=== PATIENT | female | born 1990 | race Asian ===

== ENCOUNTER → 2018-02-13 08:06 | Outpatient (CLI) | payer OTHER, SELFPAY ==
[2018-02-13 09:40] LABS: Hematocrit 29.9 % (36-46); Hemoglobin 10.7 g/dL (12.0-16.0)
[2018-02-13 10:16] LABS: GTT (PREG) 1 Hour PP 50gm Dose 117 mg/dL (76-139)
== END ==
PROVIDERS: Family Provider Obstetrics & Gynecology; PCP Obstetrics & Gynecology; Visit Provider Obstetrics & Gynecology
DX: Z34.02 Encounter for supervision of normal first pregnancy, second trimester (principal)
CPT/HCPCS: 36415; 82950; 85014; 85018

== ENCOUNTER → 2018-04-13 09:08 | Outpatient (CLI) | payer OTHER, SELFPAY ==
[2018-04-14 14:22] LABS: Strep Grp B PCR POS for Grp B Strep
== END ==
PROVIDERS: Family Provider Obstetrics & Gynecology; PCP Obstetrics & Gynecology; Visit Provider Obstetrics & Gynecology
DX: Z34.03 Encounter for supervision of normal first pregnancy, third trimester (principal)
CPT/HCPCS: 87653

== ENCOUNTER 2018-05-18 08:07 | Observation (INO) | payer OTHER, SELFPAY ==
--- NOTE | 2018-05-18 17:56 | P.TNLD_ITS ---
Visit Information Visit Information Date of evaluation: 05/18/18 Primary OB Provider: Sunitha Betancourt Reason for Evaluation: Yes non-stress test non-stress test reason: other ( Postdates) Evaluation Evaluation Baseline heart rate: 125 Variability: Moderate (11-25) monitor accelerations: Present monitor decelerations: Absent Uterine Contraction Intensity: Mild Category of Tracing: I
== END 2018-05-18 09:29 | disposition home or self-care (01) ==
LOC: LABOR 08:09
PROVIDERS: Admitting Provider Obstetrics & Gynecology; PCP Obstetrics & Gynecology; Visit Provider Obstetrics & Gynecology
DX: Z34.90 Encounter for supervision of normal pregnancy, unspecified, unspecified trimester (principal)
CPT/HCPCS: 59025; G0378; G0379

== ENCOUNTER 2018-05-18 23:50 | Observation (INO) | payer OTHER, SELFPAY | END 2018-05-19 01:40 | disposition home or self-care (01) | LOC: LABOR 23:55 | PROVIDERS: Admitting Provider Family Medicine; Family Provider Obstetrics & Gynecology; PCP Obstetrics & Gynecology; Visit Provider Family Medicine | DX: O48.0 Post-term pregnancy (principal); Z3A.40 40 weeks gestation of pregnancy | CPT/HCPCS: 59025; 59050; G0378; G0379 ==

== ENCOUNTER 2018-05-20 03:32 | Inpatient (IN) | payer OTHER, SELFPAY ==
[2018-05-20] MEDS: LACTATED RINGERS 1,000 ML 100 ML IV ×3 (04:00→10:22)
[2018-05-20] MEDS: PENICILLIN G POTASSIUM 5,000,000 UNIT in DEXTROSE 5% IN WATER 250 ML IV (04:10)
[2018-05-20 04:16] LABS: Add Manual Diff / Slide Review NO; Eosinophils Percent Auto 0.4 % (2-4); Hematocrit 42.1 % (36-46); Hemoglobin 14.7 g/dL (12.0-16.0); Lymphocytes Percent Auto 18.2 % (25-40); Mean Corpuscular HGB Conc 34.9 % (30-36); Mean Corpuscular Hemoglobin 33.8 PG (26-34); Mean Corpuscular Volume 96.8 fL (80-100); Monocytes Percent Auto 8.4 % (3-14); Neutrophils Absolute Auto 10100 /uL (3000-5900); Platelet Count 156 X10^3/uL (150-400); Red Blood Cell Count 4.35 X10^6/uL (4.0-5.2); Red Cell Distribution Width 13.6 % (11.6-14.8)
[2018-05-20 07:15] VITALS: BP 117/65
[2018-05-20] MEDS: PENICILLIN G POTASSIUM 3,000,000 UNIT/50 ML FROZ.PIGGY 100 UNIT IV ×2 (07:45→11:53)
[2018-05-20] MEDS: LANOLIN OINT 7 GM 1 APPLIC TOP (20:45)
[2018-05-20] MEDS: DERMOPLAST SPRAY 20% 60 ML 1 SPRAY TOP (20:45)
[2018-05-20] MEDS: IBUPROFEN 600 MG TABLET PO (20:46)
[2018-05-20] MEDS: DOCUSATE 250 MG CAPSULE PO (20:46)
[2018-05-21] MEDS: IBUPROFEN 600 MG TABLET PO ×2 (02:43→09:22)
[2018-05-21 06:41] LABS: Add Manual Diff / Slide Review NO; Basophils Percent Auto 0.3 % (0-2); Eosinophils Percent Auto 0.4 % (2-4); Lymphocytes Percent Auto 14.1 % (25-40); Mean Corpuscular HGB Conc 34.4 % (30-36); Mean Corpuscular Hemoglobin 33.8 PG (26-34); Mean Corpuscular Volume 98.3 fL (80-100); Monocytes Percent Auto 9.1 % (3-14); Neutrophils Absolute Auto 10400 /uL (3000-5900); Neutrophils Percent Auto 76.1 % (50-75); Red Blood Cell Count 2.38 X10^6/uL (4.0-5.2); Red Cell Distribution Width 13.4 % (11.6-14.8); White Blood Cell Count 13.7 X10^3/uL (4.5-11.0)
[2018-05-21 06:43] LABS: Hematocrit 23.4 % (36-46); Platelet Count 99 X10^3/uL (150-400)
[2018-05-21] MEDS: PRENATAL VIT,CALC/IRON/FOLIC 1 TABLET 1 TAB PO (09:23)
[2018-05-21] MEDS: DOCUSATE 250 MG CAPSULE PO (09:31)
[2018-05-22] MEDS: DOCUSATE 250 MG CAPSULE PO (09:09)
[2018-05-22] MEDS: PRENATAL VIT,CALC/IRON/FOLIC 1 TABLET 1 TAB PO (09:09)
[2018-05-22 09:51] VITALS: BP 111/56; PULSE 109; RESP 16; TEMP 36.1
--- NOTE | 2018-06-10 16:43 | PM.OBHP.1 ---
OB HPI Date/Time Date of admission: 05/20/18 Date Patient Seen: 05/20/18 Time Patient Seen: 08:30 History of Present Condition Chief complaint: labor & delivery : 1 Para: 0 Estimated Date of Delivery: 05/13/18 Estimated Gestational Age (weeks): 41 Narrative: Lexii Mascorro is a 27 year old female 1 para 0 at 41 weeks gestation who presented in active labor Indications Other reason(s) for admission: Active labor History of Present care: good care, initiated at week # (9), number of visits (13) and pounds weight gain (30) Dating criteria: LMP confirmed by 1st trimester US Ultrasounds: normal 1st trimester US and normal mid trimester US Obstetrical complications: none Medical complications: none Preadmission Labs Blood type: A (+) positive -: Antibody screen: negative, GBS status: negative, HBsAG: positive, HIV: negative and RPR/VDLR: negative -: Chlamydia screen: not detected and Gonorrhea screen: not detected -: Rubella: immune and Varicella: immune HCT: 29.9 HCAB: negative PAP: Normal Urine: Negative 1 hr GTT: 117 Evaluation Evaluation Baseline heart rate: 140 Variability: Moderate (11-25) monitor accelerations: Present monitor decelerations: Absent Contraction Frequency (minutes): 3 Uterine Contraction Intensity: Strong/Firm Category of Tracing: I Cervical dilation (cm): 4 Cervical effacement (%): 80 station: -2 Laboratory results: Laboratory Tests 05/20/18 05/20/18 05/21/18 04:03 04:03 06:05 WBC 14.0 H 13.7 H RBC 4.35 2.38 L Hgb 14.7 8.0 L Hct 42.1 23.4 L MCV 96.8 98.3 MCH 33.8 33.8 MCHC 34.9 34.4 RDW 13.6 13.4 Plt Count 156 99 L Neut % (Auto) 72.0 76.1 H Lymph % (Auto) 18.2 L 14.1 L [place] % (Auto) 8.4 9.1 Eos % (Auto) 0.4 L 0.4 L Baso % (Auto) 1.0 0.3 Neut # (Auto) 13343 H 05365 H Blood Type A Positive [facility] Social History Smoking Status: Never smoker Meds Home Medications Medication Instructions Recorded Confirmed Type No Known Home Medications 05/20/18 05/20/18 History Allergies Allergy/AdvReac Type Severity Reaction Status Date / Time No Known Drug Allergies Allergy Verified 05/20/18 03:57 Exam Vital Signs (past 8 hours): Generally: A well-developed, well-nourished female, no acute distress Lungs: Clear to auscultation bilaterally Cardiovascular: Regular rate and rhythm Fundal height: 40 cm Estimated weight: 8 1/2 pounds Extremities: Negative Homans, trace edema Objective Labs Result Diagrams: 05/21/18 06:05 Assessment and Plan (1) 41 weeks gestation of : Current visit: No Status: Acute (2) Thick meconium stained amniotic fluid: Current visit: No Status: Acute Plan: Plan: Assessment: 27-year-old 1 para 0 at 41 weeks gestation entering 2nd stage of labor Thick meconium-stained amniotic fluid Plan: Peds notified Expected management to spontaneous vaginal delivery
--- NOTE | 2018-06-10 16:49 | P.HPOB_ITS ---
OB HPI Date/Time Date of admission: 05/20/18 Date Patient Seen: 05/20/18 Time Patient Seen: 08:30 History of Present Condition Chief complaint: labor & delivery : 1 Para: 0 Estimated Date of Delivery: 05/13/18 Estimated Gestational Age (weeks): 41 Narrative: Lexii Mascorro is a 27 year old female 1 para 0 at 41 weeks gestation who presented in active labor Indications Other reason(s) for admission: Active labor History of Present care: good care, initiated at week # (9), number of visits (13) and pounds weight gain (30) Dating criteria: LMP confirmed by 1st trimester US Ultrasounds: normal 1st trimester US and normal mid trimester US Obstetrical complications: none Medical complications: none Preadmission Labs Blood type: A (+) positive -: Antibody screen: negative, GBS status: negative, HBsAG: positive, HIV: negative and RPR/VDLR: negative -: Chlamydia screen: not detected and Gonorrhea screen: not detected -: Rubella: immune and Varicella: immune HCT: 29.9 HCAB: negative PAP: Normal Urine: Negative 1 hr GTT: 117 Evaluation Evaluation Baseline heart rate: 140 Variability: Moderate (11-25) monitor accelerations: Present monitor decelerations: Absent Contraction Frequency (minutes): 3 Uterine Contraction Intensity: Strong/Firm Category of Tracing: I Cervical dilation (cm): 4 Cervical effacement (%): 80 station: -2 Laboratory results: Laboratory Tests 05/20/18 05/20/18 05/21/18 04:03 04:03 06:05 WBC 14.0 H 13.7 H RBC 4.35 2.38 L Hgb 14.7 8.0 L Hct 42.1 23.4 L MCV 96.8 98.3 MCH 33.8 33.8 MCHC 34.9 34.4 RDW 13.6 13.4 Plt Count 156 99 L Neut % (Auto) 72.0 76.1 H Lymph % (Auto) 18.2 L 14.1 L [place] % (Auto) 8.4 9.1 Eos % (Auto) 0.4 L 0.4 L Baso % (Auto) 1.0 0.3 Neut # (Auto) 86614 H 93738 H Blood Type A Positive Antibody Screen [facility] Social History Smoking Status: Never smoker Meds Home Medications Medication Instructions Recorded Confirmed Type No Known Home Medications 05/20/18 05/20/18 History Allergies Allergy/AdvReac Type Severity Reaction Status Date / Time No Known Drug Allergies Allergy Verified 05/20/18 03:57 Exam Vital Signs (past 8 hours): Generally: A well-developed, well-nourished female, no acute distress Lungs: Clear to auscultation bilaterally Cardiovascular: Regular rate and rhythm Fundal height: 40 cm Estimated weight: 8 1/2 pounds Extremities: Negative Homans, trace edema Objective Labs Result Diagrams: 05/21/18 06:05 Assessment and Plan (1) 41 weeks gestation of : Current visit: No Status: Acute (2) Thick meconium stained amniotic fluid: Current visit: No Status: Acute Plan: Plan: Assessment: 27-year-old 1 para 0 at 41 weeks gestation entering 2nd stage of labor Thick meconium-stained amniotic fluid Plan: Peds notified Expected management to spontaneous vaginal delivery
--- NOTE | 2018-06-10 16:50 | PM.OBPRVD ---
Events: Meconium Stained Fluid Delivery date: 05/20/18 Induction method: none Delivery monitor: external FHT and external uterine Route of delivery: Episiotomy description: None Laceration description: None Estimated blood loss (mL): 400 Anesthesia type: Epidural Narrative: Patient complete and pushed for 1 and 0.5 hr. At 3:21 p.m., a live male infant delivered spontaneously over an intact perineum. No nuchal cord. There was a mild shoulder dystocia that was relieved with Jaelyn and suprapubic pressure. The was placed on mom's abdomen. The cord was double clamped and cut. Pitocin was given in the IV fluids. Cord bloods were obtained. The placenta delivered intact with a 3 vessel cord at 3:26 p.m.. Estimated blood loss 400 cc. No lacerations. Apgars 7 at 1 min and 9 at 5 min. Weight 8 lb 11.86 oz. . Epidural analgesia. Mom and infant stable to recovery. Thick meconium-stained amniotic fluid. Plan for aftercare: To routine care
--- NOTE | 2018-06-10 16:52 | PM.OBPN.1 ---
Subjective - OB Patient comments: no complaints baby status: doing well feeding status: exclusively breast feeding Date Patient Seen: 05/21/18 Time Patient Seen: 13:30 Exam Vital Signs (past 8 hours): Generally: Mom sitting up in bed, holding infant, no acute distress Fundus: Firm at U -1 Extremities: Negative Homans, no edema Objective Labs Result Diagrams: 05/21/18 06:05 Assessment & Plan (1) 41 weeks gestation of : Status: Acute Current Visit: No (2) Thick meconium stained amniotic fluid: Status: Acute Current Visit: No (3) (normal spontaneous vaginal delivery): Status: Acute Current Visit: No (4) Shoulder dystocia during labor and delivery: Status: Acute Assessment and plan: Assessment: day # 1. Status post spontaneous vaginal delivery doing very well Plan: Anticipate discharge 05/22/2018 Current Visit: No Plan day: 1 plan OB: routine care Time Spent With Patient Total time spent is greater than 50% in coordination of care (as documented) at patient's floor/unit and/or counseling patient: less than 15 minutes
--- NOTE | 2018-06-10 16:56 | P.DS_ITS ---
Discharge Providers Date of admission: 05/20/18 03:32 Primary care physician: Sunitha Betancourt MD Consults: 05/20/18 19:25 Consult to Papier Mache Molder Routine Comment: Discharge provider: Sunitha Betancourt MD Discharge Date: 05/22/18 Summary Date Patient Seen: 05/22/18 Time Patient Seen: 11:30 Peripartum Data Delivery Method: Natural Vaginal Laceration description: None Episiotomy description: None Procedures: Spontaneous vaginal delivery Epidural analgesia complications: none Discharge Diagnosis (1) 41 weeks gestation of : Status: Acute (2) Thick meconium stained amniotic fluid: Status: Acute (3) (normal spontaneous vaginal delivery): Status: Acute (4) Shoulder dystocia during labor and delivery: Status: Acute Status at Discharge Functional status at discharge: independent ambulation Overall status at discharge: patient is progressing back to baseline Time Spent with Patient Total time spent providing and/or coordinating discharge services: Less than 30 minutes Objective Labs Result Diagrams: 05/21/18 06:05 Discharge Plan Discharge Plan Patient Disposition: Home Discharge comment: Call with fever, chills or bleeding vaginally more than a pad in an hour Discharge Med Rec/Prescriptions Prescriptions: No Action No Known Home Medications RF: 0 Follow up/Referrals: Sunitha Betancourt MD [Primary Care Provider] - 6 Weeks (Pt will call for her appointment with Dr. Betancourt) Provider Discharge Instructions Diet: Diet as Tolerated Activity: No intercourse Skin/Wound/Dressing Care Report to your healthcare provider any signs of infection, such as:: chills, fever, increased pain and unusual drainage Visit Report/Discharge Packet Instructions: DI for Labor and Delivery, Vaginal Stand Alone Forms: Discharge: Care Visit Report Forms: Stroke Signs & Symptoms Discharge Data Primary Care Provider: Sunitha Betancourt Attending Provider: Sunitha Betancourt Admit Date/Time: 05/20/18 03:32 Discharges patient from system. Discharge Date/Time: 05/22/18 11:48
== END 2018-05-22 11:48 | disposition home or self-care (01) | DRG 775 ==
PROVIDERS: Admitting Provider Obstetrics & Gynecology; Family Provider Obstetrics & Gynecology; PCP Obstetrics & Gynecology; Visit Provider Obstetrics & Gynecology
DX: O77.0 Labor and delivery complicated by meconium in amniotic fluid (principal); Z3A.41 41 weeks gestation of pregnancy; Z37.0 Single live birth; O66.0 Obstructed labor due to shoulder dystocia
CPT/HCPCS: 01967; 36415; 59050; 59400; 85025; 86850; 86900; 86901; G0379; J2540

== ENCOUNTER → 2018-09-15 21:16 | Outpatient (CLI) | payer OTHER, SELFPAY | PROVIDERS: Family Provider Obstetrics & Gynecology; PCP Obstetrics & Gynecology; Visit Provider Physician Assistant | DX: Z20.818 Contact with and (suspected) exposure to other bacterial communicable diseases (principal) | CPT/HCPCS: 87070 ==

== ENCOUNTER → 2020-03-05 08:30 | Outpatient (CLI) | payer OTHER, SELFPAY ==
[2020-03-05 09:58] LABS: Add Manual Diff / Slide Review NO; Basophils Absolute Auto 0 /uL (0-100); Basophils Percent Auto 0.3 % (0-2); Eosinophils Absolute Auto 0 /uL (0-450); Eosinophils Percent Auto 0.6 % (2-4); Hematocrit 39.8 % (36-46); Hemoglobin 13.9 g/dL (12.0-16.0); Lymphocytes Absolute Auto 1700 /uL (1100-4500); Lymphocytes Percent Auto 23.7 % (25-40); Mean Corpuscular Hemoglobin 33.2 PG (26-34); Mean Corpuscular Volume 94.9 fL (80-100); Monocytes Absolute Auto 500 /uL (0-900); Monocytes Percent Auto 7.4 % (3-14); Neutrophils Absolute Auto 4800 /uL (1500-7000); Platelet Count 167 X10^3/uL (150-400); Red Blood Cell Count 4.19 X10^6/uL (4.0-5.2); Red Cell Distribution Width 11.8 % (11.6-14.8)
[2020-03-05 11:30] LABS: Appearance Urine UA CLEAR; Bilirubin Urine UA NEGATIVE (NEGATIVE); Color Urine UA YELLOW; Glucose Urine UA NEGATIVE (Negative); Ketones Urine UA NEGATIVE (NEGATIVE); Leukocyte Esterase Urine UA NEGATIVE (NEGATIVE); Nitrite Urine UA NEGATIVE (Negative); Occult Blood Urine UA NEGATIVE (Negative); Protein Urine UA NEGATIVE (Negative); Specific Gravity Urine UA <=1.005 (1.000-1.035); Urobilinogen Urine UA 0.2 E.U./dL (0.2)
[2020-03-05 17:29] LABS: Urine N gonorrhoeae NOT DETECTED
[2020-03-05 18:10] LABS: Urine Chlamydia NOT DETECTED
[2020-03-06 01:47] LABS: RPR Screen Non Reactive (Non Reactive)
[2020-03-06 08:09] LABS: Varicella IgG Antibody 3293 index (Immune >165)
[2020-03-06 16:16] LABS: HIV 1 & 2 Ab/Ag 4th Gen Combo NEGATIVE (NEGATIVE); Hep C Virus Ab w/Reflex Quant NEGATIVE s/c (NEGATIVE); Rubella Antibody IgG 16.5 IU/mL (>15)
[2020-03-06 16:23] LABS: Hepatitis B Surface Antigen NEGATIVE s/c (NEGATIVE)
== END ==
PROVIDERS: Family Provider Obstetrics & Gynecology; PCP Obstetrics & Gynecology; Referring Provider Obstetrics & Gynecology; Visit Provider Obstetrics & Gynecology
DX: Z34.81 Encounter for supervision of other normal pregnancy, first trimester (principal)
CPT/HCPCS: 36415; 80055; 81003; 86787; 86803; 86850; 86900; 86901; 87086; 87389; 87491; 87591

== ENCOUNTER → 2020-06-12 07:51 | Outpatient (CLI) | payer OTHER, SELFPAY ==
--- NOTE | 2020-06-12 07:53 | DI.US.S_ITS ---
PROCEDURE: US OB >= 14 WEEKS FETUS INDICATIONS: ANATOMY SCAN OUTSIDE/PRIOR DATING DATA: Last menstrual period (LMP): Not available. LMP-based estimated date of delivery (ANNABEL): Not available . First dating scan (date and location): 03/05/20 . Estimated date of delivery (ANNABEL) from first dating scan: 10/27/20 . TECHNIQUE: Real-time scanning was performed of the fetus, with image documentation and biometric measurements. Endovaginal scanning: Not necessary. COMPARISON: [facility], , OB >= 14 WEEKS FETUS, 05/18/2018, 8:03. [facility], , OB >= 14 WEEKS FETUS, 03/09/2018, 10:47. FINDINGS: General: A single living intrauterine gestation is present. Presentation: Transverse head maternal right. Placenta: Placental position is posterior, without previa , without previa. Amniotic fluid index: 15.2 cm, within normal limits. heart rate: 160 beats per minute. Maternal cervical canal: 4.1 cm long. Normal lower limit is 2.5 cm. biometrics: Biparietal diameter: 5.1 cm, 21 weeks 3 days Head circumference: 18.8 cm, 21 weeks 1 day Abdominal circumference: 16.1 cm, 21 weeks 2 days Femur length: 3.5 cm, 21 weeks 0 days Estimated gestational age from initial scan: 20 weeks 3 days Composite gestational age from present scan: 21 weeks 2 days Estimated weight and percentile: 401 g, 80 second percentile Measurement variability for biometric dating: +/- 7 days from 14 weeks to 15 weeks 6 days gestation, +/- 10 days from 16 weeks to 21 weeks 6 days gestation, +/- 2 weeks from 22 weeks to 27 weeks 6 days gestation, +/- 3 weeks for 28 weeks gestation or later. weight reference: 4500 g or EFW >90/95% is considered macrosomia or large for gestational age. EFW <10% is small for gestational age. EFW 5% or less is considered intra-uterine growth restriction. Anatomic survey: Neuro: Ventricles are non-dilated at less than 10 mm. Cisterna magna is normal at 3-11 mm. Cerebellum is normal in size and morphology. Nuchal skin fold: Normal at less than 6 mm between 14-21 weeks gestational age. Face: Nose and lips, facial profile are normal. Spine: No evidence for spina bifida. Heart: 4-chambered heart is present, with normal ventricular outflow tracts. Diaphragm: Diaphragm is intact. Stomach: Left-sided stomach is present. Kidneys: No hydronephrosis. Normal is less than 5 mm in 2nd trimester, less than 7 mm in 3rd trimester. Cord: 3-vessel cord has orthotopic insertion. Bladder: Normal in size. Extremities: All 4 extremities identified. IMPRESSION: Appropriate interval growth, normal amniotic fluid volume. Normal anatomic survey. The delivery date is projected to be centered on 10/27/20. Dictated by: Tai Guidry M.D. on 06/12/2020 at 13:28 Approved by: Tai Guidry M.D. on 06/12/2020 at 13:34
== END ==
PROVIDERS: Family Provider Obstetrics & Gynecology; PCP Obstetrics & Gynecology; Referring Provider Obstetrics & Gynecology; Visit Provider Obstetrics & Gynecology
DX: Z34.82 Encounter for supervision of other normal pregnancy, second trimester (principal); Z3A.21 21 weeks gestation of pregnancy
CPT/HCPCS: 76811

== ENCOUNTER → 2020-07-31 07:03 | Outpatient (CLI) | payer OTHER, SELFPAY ==
[2020-07-31 10:49] LABS: Hematocrit 30.9 % (36-46); Hemoglobin 10.6 g/dL (12.0-16.0)
[2020-07-31 11:18] LABS: GTT (PREG) 1 Hour PP 50gm Dose 116 mg/dL (76-139)
== END ==
PROVIDERS: Family Provider Obstetrics & Gynecology; Referring Provider Obstetrics & Gynecology; Visit Provider Obstetrics & Gynecology
DX: Z34.82 Encounter for supervision of other normal pregnancy, second trimester (principal); Z3A.26 26 weeks gestation of pregnancy
CPT/HCPCS: 36415; 82950; 85014; 85018

== ENCOUNTER → 2020-10-04 14:15 | Outpatient (CLI) | payer OTHER, SELFPAY ==
[2020-10-05 12:01] LABS: Strep Grp B PCR POS for Grp B Strep
== END ==
PROVIDERS: Family Provider Obstetrics & Gynecology; Visit Provider Obstetrics & Gynecology
DX: Z34.90 Encounter for supervision of normal pregnancy, unspecified, unspecified trimester (principal); Z3A.36 36 weeks gestation of pregnancy
CPT/HCPCS: 87653

== ENCOUNTER 2020-10-16 09:51 | Inpatient (IN) | payer OTHER, SELFPAY ==
[2020-10-16] MEDS: LACTATED RINGERS 1,000 ML 100 ML IV ×2 (11:39→15:32)
[2020-10-16] MEDS: PENICILLIN G POTASSIUM 5,000,000 UNIT in DEXTROSE 5% IN WATER 250 ML IV (11:39)
[2020-10-16 11:41] LABS: Add Manual Diff / Slide Review NO; Basophils Absolute Auto 0 /uL (0-100); Basophils Percent Auto 0.4 % (0-2); Eosinophils Absolute Auto 0 /uL (0-450); Eosinophils Percent Auto 0.3 % (2-4); Hematocrit 38.8 % (36-46); Hemoglobin 13.4 g/dL (12.0-16.0); Lymphocytes Absolute Auto 1300 /uL (1100-4500); Lymphocytes Percent Auto 13.6 % (25-40); Mean Corpuscular HGB Conc 34.5 % (30-36); Mean Corpuscular Volume 95.7 fL (80-100); Monocytes Absolute Auto 600 /uL (0-900); Monocytes Percent Auto 6.9 % (3-14); Neutrophils Absolute Auto 7300 /uL (1500-7000); Neutrophils Percent Auto 78.8 % (50-75); Platelet Count 144 X10^3/uL (150-400); Red Blood Cell Count 4.05 X10^6/uL (4.0-5.2); Red Cell Distribution Width 13.5 % (11.6-14.8); White Blood Cell Count 9.3 X10^3/uL (4.5-11.0)
[2020-10-16 11:48] LABS: COVID19 -Nasal RAPID Negative (Negative)
[2020-10-16] MEDS: PENICILLIN G POTASSIUM 3,000,000 UNIT/50 ML FROZ.PIGGY 100 UNIT IV (15:32)
[2020-10-16] MEDS: OXYTOCIN PREMIX 30 UNIT/500 ML PLAST..BAG IV (16:47)
--- NOTE | 2020-10-16 19:44 | PM.OBPRVD ---
Events: Labor Augmentation and Premature Rupture Membrane Labor & Delivery Delivery date: 10/16/20 Cervical ripening method: none Induction method: none Delivery augmentation: pitocin Delivery monitor: external FHT and external uterine Route of delivery: Episiotomy description: None L&D Laceration Description: Perineal - 1st Degree Delivery repair: chromic Anesthesia Type: Epidural Complications: None Narrative: Patient complete and pushed for 4 minutes. At 7:11 p.m., a live male infant delivered spontaneously in the KRYSTIN presentation. Loose double nuchal cord x2 were reduced on the perineum. The remainder of the body delivered without difficulty and was placed on mom's abdomen. The cord was double clamped and cut after it stopped pulsing. Cord bloods were obtained. Pitocin was given in the IV fluids. The placenta delivered intact with a three-vessel cord at 7:16 p.m.. A first-degree perineal laceration was repaired with 2-0 chromic in the usual fashion. Hemostasis was achieved. Apgars 9 at 1 minute and 9 at 5 minutes. Epidural analgesia. . Mom and infant stable to recovery. [place] Baby 1: Infant gender: Male Presentation: vertex Position: Left Occiput Anterior Placenta delivery description: Spontaneous Cord Vessel Description: 3 Vessels, Nuchal Cord (x2), Loose, Reduced and Clamped/Cut score (1 min): 9 score (5 min): 9 Plan for aftercare: Routine care
--- NOTE | 2020-10-16 19:54 | P.HPOB_ITS ---
OB HPI Date/Time Date of admission: 10/16/20 Date Patient Seen: 10/16/20 Time Patient Seen: 10:00 History of Present Condition Chief complaint: NST : 2 Para: 1 Estimated Date of Delivery: 10/27/20 Estimated Gestational Age (weeks): 38+3 Narrative: Lexii Mascorro is a 30 year old female 2 para 1 at 38 and 3 7th weeks gestation presented this morning after rupture membranes at 2:00 a.m. of clear amniotic fluid. Irregular contractions. Indications Other reason(s) for admission: Spontaneous rupture membranes History of Present care: initiated at week # (6), number of visits (11) and pounds weight gain (33) Dating criteria: LMP confirmed by 1st trimester US Ultrasounds: normal 1st trimester US and normal mid trimester US Obstetrical complications: none Medical complications: none Preadmission Labs Blood type: A (+) positive -: Antibody screen: negative, GBS status: positive, HBsAG: negative, HIV: negative and RPR/VDLR: negative -: Chlamydia screen: not detected and Gonorrhea screen: not detected -: Rubella: immune and Varicella: immune HCT: 38.8 HCAB: negative PAP: Normal (2017) Urine: Negative 1 hr GTT: 116 Prior (ies) History: 05/20/18 41 wks 8#11oz postdate induction shoulder dystocia MSF Evaluation Evaluation Baseline heart rate: 145 Variability: Moderate (11-25) monitor accelerations: Present monitor decelerations: Absent Contraction Frequency (minutes): 6 Uterine Contraction Intensity: Mild Status: Category l Laboratory results: Laboratory Tests 10/16/20 10/16/20 10/16/20 11:15 11:20 11:20 WBC 9.3 RBC 4.05 Hgb 13.4 Hct 38.8 MCV 95.7 MCH 33.0 MCHC 34.5 RDW 13.5 Plt Count 144 L Neut % (Auto) 78.8 H Lymph % (Auto) 13.6 L [place] % (Auto) 6.9 Eos % (Auto) 0.3 L Baso % (Auto) 0.4 Neut # (Auto) 7300 H Lymph # (Auto) 1300 [place] # (Auto) 600 Eos # (Auto) 0 Baso # (Auto) 0 SARS-CoV-2 (PCR) Negative Blood Type A Positive Antibody Screen Negative Non-invasive Membranes Rupture Test: positive PFSH Medical History (Updated 08/07/20 @ 10:19 by Sunitha Betancourt MD) Jaw fracture Surgical History (Updated 03/01/20 @ 12:15 by Marylin Balderrama, RN) [place] teeth removed (~2005) Family History (Updated 03/01/20 @ 12:23 by Marylin Balderrama, RN) Mother Pre-hypertension Father No problems noted. Grandfather Hypertension Diabetes mellitus Grandmother Unknown whether patient has any health problems Grandfather Lung cancer Cancer Smoker Myocardial infarct Grandmother Arthritis Cataract Family/Other Diabetes mellitus Brother Pre-hypertension Family/Other Epilepsy Family/Other Epilepsy Social History (Updated 03/01/20 @ 11:47 by Marylin Balderrama, CALEB) marital status: number of children: 1 household members: spouse and children education level: master's degree occupational status: previously employed current occupational exposures/hazards: No Previous occupational history: School Counselor : subbing in [employer] agrcia/denominational: Sabianism special garcia needs: No Smoking Status: Never smoker second hand exposure: No alcohol intake: former (pre- : occasional) substance use type: does not use Meds Home Medications and Allergies Home Medications Medication Instructions Recorded Confirmed Type prenat.vits,emme,owm-flnu-tcmgp 1 tab PO DAILY 03/01/20 10/16/20 History Allergies Allergy/AdvReac Type Severity Reaction Status Date / Time No Known Drug Allergies Allergy Verified 10/04/20 14:22 Exam Vital Signs (past 8 hours): Generally: Patient is sitting up in bed, no acute distress. Handling the contractions well Lungs: Clear to auscultation bilaterally Cardiovascular: Regular rate and rhythm Fundal height: 38 cm Estimated weight: 7-1/2 lb Extremities: Negative Homans Vaginal exam: deferred Objective Labs Result Diagrams: 10/16/20 11:20 Labs: Laboratory Results - last 24 hr 10/16/20 10/16/20 10/16/20 11:15 11:20 11:20 WBC 9.3 RBC 4.05 Hgb 13.4 Hct 38.8 MCV 95.7 MCH 33.0 MCHC 34.5 RDW 13.5 Plt Count 144 L Neut % (Auto) 78.8 H Lymph % (Auto) 13.6 L [place] % (Auto) 6.9 Eos % (Auto) 0.3 L Baso % (Auto) 0.4 Neut # (Auto) 7300 H Lymph # (Auto) 1300 [place] # (Auto) 600 Eos # (Auto) 0 Baso # (Auto) 0 SARS-CoV-2 (PCR) Negative Blood Type A Positive Antibody Screen Negative Assessment and Plan Assessment and Plan Assessment and Plan narrative: Assessment: 30-year-old 2 para 1 at 38-,3/7 weeks gestation status post rupture of membranes 8 hours ago Group B strep positive No signs and symptoms of chorioamnionitis Not in active labor Plan: Group B strep prophylaxis Pitocin augmentation Epidural as necessary Expected management to spontaneous vaginal delivery Time Spent with Patient Total time spent with greater than 50% in coordination of care (as documented) at patient's floor/unit and/or counseling patient:: 15-24 minutes
[2020-10-16] MEDS: IBUPROFEN 600 MG TABLET PO (21:29)
[2020-10-16] MEDS: DERMOPLAST SPRAY 20% 60 ML 1 SPRAY TOP (21:29)
[2020-10-16 21:57] VITALS: BP 121/76
[2020-10-17] MEDS: LANOLIN OINT 7 GM 1 APPLIC TOP (05:40)
[2020-10-17] MEDS: IBUPROFEN 600 MG TABLET PO (05:41)
[2020-10-17 07:11] LABS: Hematocrit 33.4 % (36-46); Hemoglobin 11.6 g/dL (12.0-16.0)
[2020-10-17] MEDS: DOCUSATE 100 MG CAPSULE PO (09:41)
[2020-10-17] MEDS: PRENATAL VIT,CALC/IRON/FOLIC 1 TABLET 1 TAB PO (09:41)
[2020-10-17 14:38] VITALS: BP 121/76; PULSE 70; RESP 18; TEMP 36.6
--- NOTE | 2020-10-17 18:03 | PM.OBDS.1 ---
Discharge Providers Provider Date of admission: 10/16/20 09:51 Discharge Date: 10/17/20 Primary care physician: Doctor Yury MD Consults: 10/17/20 19:38 Consult to [employer] Specialist Routine Comment: Discharge provider: Sunitha Betancourt MD Summary Hospital Course Date Patient Seen: 10/17/20 Time Patient Seen: 08:00 Diagnoses: 38-3/7 weeks gestation Prolonged rupture of membrane Group B strep positive Pitocin augmentation of labor Spontaneous vaginal delivery First-degree perineal laceration and repair Hospital Course: Patient is a 30-year-old 2 para 2 who presented at 9:00 a.m. after spontaneous rupture of membranes at 2:00 a.m. of clear amniotic fluid. She was started on Pitocin augmentation. She received an epidural for pain management. She progressed to complete dilation and had a spontaneous vaginal delivery with a first-degree laceration and repair. Her course was unremarkable. Peripartum Data Delivery Method: Natural Vaginal Laceration Description: Perineal - 1st Degree Episiotomy description: None Procedures: Epidural analgesia Pitocin augmentation of labor Spontaneous vaginal delivery First-degree laceration and repair complications: none [place] 1: Gender: Male Disposition of : home Status at Discharge Cognitive/behavioral status at discharge: oriented Functional status at discharge: independent ambulation Overall status at discharge: patient is progressing back to baseline Time Spent with Patient Time attestation: Total time spent providing and/or coordinating discharge services: Time spent: Less than 30 minutes Objective Labs Result Diagrams: 10/17/20 06:50 Labs: Laboratory Results - last 24 hr 10/17/20 06:50 Hgb 11.6 L Hct 33.4 L Exam Vital Signs (past 8 hours): - 10/17/20 14:38 Temperature 97.8 F Pulse Rate 70 Respiratory Rate 18 Blood Pressure 121/76 Narrative Exam Narrative: Generally: Patient is sitting up in bed, nursing , no acute distress Fundus: Firm at U -1 Extremities: Negative Homans, no edema Discharge Plan Discharge Plan Patient Disposition: Home Provider Discharge Comment: Call with fever, chills, or bleeding vaginally more than a pad an hour Ibuprofen 600 mg every 6 hours as needed for cramping Discharge orders & Medications Prescriptions: Continued prenat.vits,meme,zfc-ypxp-tiadq Tablet 1 tab PO DAILY RF: 0 Follow up/Referrals: Sunitha Betancourt MD [Family Provider] - 11/28/20 2:00 pm (Check in 15 minutes prior to appointment. Call [phone] with any question or concerns appointment on 10/22 @ 1000) Doctor Cotton MD [Primary Care Provider] - Diet/Activity/Treatments Diet: Regular Activity: Nothing in the vagina Skin/Wound/Dressing Care Report to your healthcare provider any signs of infection, such as:: chills, fever, increased pain and unusual drainage Visit Report/Discharge Packet Instructions: DI for Labor and Delivery, Vaginal Stand Alone Forms: Discharge: Care Discharge Data Primary Care Provider: Doctor Yury
== END 2020-10-17 18:45 | disposition home or self-care (01) | DRG 807 ==
PROVIDERS: Admitting Provider Obstetrics & Gynecology; Family Provider Obstetrics & Gynecology; Referring Provider Obstetrics & Gynecology; Visit Provider Obstetrics & Gynecology
DX: O42.02 Full-term premature rupture of membranes, onset of labor within 24 hours of rupture (principal); Z37.0 Single live birth; O70.0 First degree perineal laceration during delivery; O99.824 Streptococcus B carrier state complicating childbirth; Z3A.38 38 weeks gestation of pregnancy; Z20.822 Contact with and (suspected) exposure to COVID-19; O69.81X0 Labor and delivery complicated by cord around neck, without compression, not applicable or unspecified
CPT/HCPCS: 01967; 36415; 59050; 59400; 84112; 85014; 85018; 85025; 86850; 86900; 86901; 87635; C9803; G0379; J2540; J2590

== ENCOUNTER → 2022-09-22 08:43 | Outpatient (CLI) | payer OTHER, SELFPAY ==
[2022-09-22 20:39] LABS: Appearance Urine UA CLEAR; Bilirubin Urine UA NEGATIVE (NEGATIVE); Color Urine UA YELLOW; Glucose Urine UA NEGATIVE (Negative); Ketones Urine UA NEGATIVE (NEGATIVE); Leukocyte Esterase Urine UA NEGATIVE (NEGATIVE); Nitrite Urine UA NEGATIVE (Negative); Occult Blood Urine UA NEGATIVE (Negative); Protein Urine UA NEGATIVE (Negative); Urobilinogen Urine UA 0.2 E.U./dL (0.2)
[2022-09-22 20:41] LABS: pH Urine UA 6.5 (4.5-8.0)
[2022-09-22 22:09] LABS: Urine N gonorrhoeae NOT DETECTED
[2022-09-22 22:31] LABS: Urine Chlamydia NOT DETECTED
== END ==
PROVIDERS: Family Provider Obstetrics & Gynecology; Visit Provider Obstetrics & Gynecology
DX: Z34.82 Encounter for supervision of other normal pregnancy, second trimester (principal); Z3A.14 14 weeks gestation of pregnancy
CPT/HCPCS: 81003; 87086; 87491; 87591

== ENCOUNTER → 2022-10-18 07:52 | Outpatient (CLI) | payer OTHER, SELFPAY ==
[2022-10-18 08:56] LABS: Add Manual Diff / Slide Review NO; Basophils Absolute Auto 0 /uL (0-100); Basophils Percent Auto 0.4 % (0-2); Eosinophils Absolute Auto 100 /uL (0-450); Eosinophils Percent Auto 1.3 % (2-4); Hematocrit 34.9 % (36-46); Hemoglobin 12.2 g/dL (12.0-16.0); Lymphocytes Absolute Auto 1500 /uL (1100-4500); Lymphocytes Percent Auto 19.5 % (25-40); Mean Corpuscular HGB Conc 35.1 % (30-36); Mean Corpuscular Hemoglobin 33.2 PG (26-34); Mean Corpuscular Volume 94.7 fL (80-100); Monocytes Absolute Auto 500 /uL (0-900); Monocytes Percent Auto 6.3 % (3-14); Neutrophils Absolute Auto 5500 /uL (1500-7000); Neutrophils Percent Auto 72.5 % (50-75); Platelet Count 164 X10^3/uL (150-400); Red Blood Cell Count 3.68 X10^6/uL (4.0-5.2); Red Cell Distribution Width 12.8 % (11.6-14.8); White Blood Cell Count 7.6 X10^3/uL (4.5-11.0)
[2022-10-18 10:17] LABS: Hepatitis B Surface Antigen NEGATIVE s/c (NEGATIVE); Rubella Antibody IgG 10.9 IU/mL (>15)
[2022-10-18 10:38] LABS: HIV 1 & 2 Ab/Ag 4th Gen Combo NEGATIVE (NEGATIVE); Hep C Virus Ab w/Reflex Quant NEGATIVE s/c (NEGATIVE)
[2022-10-19 10:52] LABS: Varicella IgG Antibody 1753 index (Immune >165)
[2022-10-20 13:43] LABS: RPR Screen Non Reactive (Non Reactive)
== END ==
PROVIDERS: Family Provider Obstetrics & Gynecology; Referring Provider Obstetrics & Gynecology; Visit Provider Obstetrics & Gynecology
DX: Z34.81 Encounter for supervision of other normal pregnancy, first trimester (principal)
CPT/HCPCS: 36415; 80055; 86787; 86803; 86850; 86900; 86901; 87389

== ENCOUNTER → 2022-10-21 15:33 | Outpatient (CLI) | payer OTHER, SELFPAY ==
--- NOTE | 2022-10-21 15:34 | DI.US.S_ITS ---
PROCEDURE: US OB >= 14 WEEKS FETUS INDICATIONS: ANATOMY OUTSIDE/PRIOR DATING DATA: Last menstrual period (LMP): 06/10/2022. LMP-based estimated date of delivery (ANNABEL): 03/17/2023. First dating scan (date and location): 08/25/2022. Estimated date of delivery (ANNABEL) from first dating scan: 03/07/2023. The calculations are made using the working ANNABEL of 03/07/2023. TECHNIQUE: Real-time scanning was performed of the fetus, with image documentation and biometric measurements. Endovaginal scanning: None COMPARISON: [facility], , OB >= 14 WEEKS FETUS, 10/04/2020, 15:12. FINDINGS: General: A single living intrauterine gestation is present. Presentation: Variable. Placenta: Placental position is anterior , without previa. Amniotic fluid index: 18.1 cm, normal range is 5-24 cm. Single deepest vertical pocket is 5.6 cm. heart rate: 155 beats per minute. Maternal cervical canal: 5.6 cm long. Normal lower limit is 2.5 cm. biometrics: Biparietal diameter: 4.7 cm, 20 week 2 day Head circumference: 17.2 cm, 19 week 5 day Abdominal circumference: 14.8 cm, 20 week 1 day Femur length: 3.1 cm, 19 week 4 day Clinically estimated gestational age: 20 week 3 day Composite gestational age from present scan: 20 week 0 day Estimated weight and percentile: 318 g, 19th percentile Anatomic survey: Neuro: Ventricles are non-dilated at less than 10 mm. Cisterna magna is normal at 3-11 mm. Cerebellum is normal in size and morphology. Nuchal skin fold: Normal at less than 6 mm between 14-21 weeks gestational age. Single loop nuchal cord noted Face: Nose and lips, facial profile are normal. Spine: No evidence for spina bifida. Heart: 4-chambered heart is present, with normal ventricular outflow tracts. Diaphragm: Diaphragm is intact. Stomach: Left-sided stomach is present. Kidneys: No hydronephrosis. Normal is less than 5 mm in 2nd trimester, less than 7 mm in 3rd trimester. Cord: 3-vessel cord has orthotopic insertion. Bladder: Normal in size. Extremities: All 4 extremities identified. IMPRESSION: Single live intrauterine consistent with a 20 week 0 day gestation by current ultrasound Incidental single loop nuchal cord Approved by: Uziel Murphy M.D. on 10/21/2022 at 17:32
== END ==
PROVIDERS: Family Provider Obstetrics & Gynecology; Referring Provider Obstetrics & Gynecology; Visit Provider Obstetrics & Gynecology
DX: Z34.82 Encounter for supervision of other normal pregnancy, second trimester (principal); Z3A.20 20 weeks gestation of pregnancy
CPT/HCPCS: 76811

== ENCOUNTER → 2022-11-24 07:09 | Outpatient (CLI) | payer OTHER, SELFPAY ==
[2022-11-24 08:39] LABS: Hematocrit 31.5 % (36-46); Hemoglobin 10.9 g/dL (12.0-16.0)
[2022-11-24 09:10] LABS: GTT (PREG) 1 Hour PP 50gm Dose 117 mg/dL (76-139)
== END ==
PROVIDERS: Family Provider Obstetrics & Gynecology; Referring Provider Obstetrics & Gynecology; Visit Provider Obstetrics & Gynecology
DX: Z34.82 Encounter for supervision of other normal pregnancy, second trimester (principal); Z3A.26 26 weeks gestation of pregnancy
CPT/HCPCS: 36415; 82950; 85014; 85018

== ENCOUNTER → 2023-03-02 16:19 | Outpatient (CLI) | payer OTHER, SELFPAY ==
[2023-03-03 15:32] LABS: Strep Grp B PCR POS for Grp B Strep
== END ==
PROVIDERS: Family Provider Obstetrics & Gynecology; Visit Provider Obstetrics & Gynecology
DX: Z34.83 Encounter for supervision of other normal pregnancy, third trimester (principal); Z3A.37 37 weeks gestation of pregnancy
CPT/HCPCS: 87653

== ENCOUNTER → 2023-03-02 16:27 | Outpatient (CLI) | payer OTHER, SELFPAY ==
[2023-03-02 18:07] LABS: Alanine Aminotransferase 61 IU/L (<35); Albumin 3.7 g/dL (3.5-5.0); Alkaline Phosphatase 289 U/L (38-126); Aspartate Aminotransferase 43 IU/L (14-36); BUN Creatinine Ratio 13.2 (6-22); Bilirubin Total 0.7 mg/dL (0.2-1.3); Blood Urea Nitrogen 7 mg/dL (7-17); Carbon Dioxide 21 mmol/L (22-32); Chloride 104 mmol/L (98-107); Estimated Glomerular Filt Rate > 60 mL/min (>60); Globulin 3.7 g/dL (1.7-4.1); Glucose 81 mg/dL (70-100); HEMOLYSIS < 15 (0-50); Potassium 3.8 mmol/L (3.4-5.1); Sodium 134 mmol/L (137-145); Total Protein 7.4 g/dL (6.3-8.2)
== END ==
PROVIDERS: Family Provider Obstetrics & Gynecology; Referring Provider Physician Assistant Medical; Visit Provider Physician Assistant Medical
DX: O99.713 Diseases of the skin and subcutaneous tissue complicating pregnancy, third trimester (principal); L29.9 Pruritus, unspecified; Z3A.37 37 weeks gestation of pregnancy
CPT/HCPCS: 36415; 80053; 82239; 87653

== ENCOUNTER 2023-03-03 02:54 | Observation (INO) | payer OTHER, SELFPAY | END 2023-03-03 03:40 | disposition home or self-care (01) | PROVIDERS: Admitting Provider Obstetrics & Gynecology; Family Provider Obstetrics & Gynecology; Referring Provider Obstetrics & Gynecology; Visit Provider Obstetrics & Gynecology | DX: O47.1 False labor at or after 37 completed weeks of gestation (principal); Z3A.38 38 weeks gestation of pregnancy | CPT/HCPCS: 59025; G0378; G0379 ==

== ENCOUNTER 2023-03-03 19:48 | Inpatient (IN) | payer OTHER, SELFPAY ==
[2023-03-03 20:57] LABS: Add Manual Diff / Slide Review NO; Basophils Absolute Auto 0 /uL (0-100); Basophils Percent Auto 0.3 % (0-2); Eosinophils Absolute Auto 0 /uL (0-450); Eosinophils Percent Auto 0.5 % (2-4); Hematocrit 36.1 % (36-46); Hemoglobin 12.3 g/dL (12.0-16.0); Lymphocytes Absolute Auto 1200 /uL (1100-4500); Lymphocytes Percent Auto 15.4 % (25-40); Mean Corpuscular Hemoglobin 31.2 PG (26-34); Mean Corpuscular Volume 91.8 fL (80-100); Monocytes Absolute Auto 600 /uL (0-900); Monocytes Percent Auto 7.2 % (3-14); Neutrophils Absolute Auto 6000 /uL (1500-7000); Neutrophils Percent Auto 76.6 % (50-75); Platelet Count 162 X10^3/uL (150-400); Red Blood Cell Count 3.93 X10^6/uL (4.0-5.2); Red Cell Distribution Width 14.2 % (11.6-14.8); White Blood Cell Count 7.8 X10^3/uL (4.5-11.0)
[2023-03-03] MEDS: DINOPROSTONE VAG (CERVIDIL) 10 MG VAG (21:24)
[2023-03-03 21:55] VITALS: BP 118/75
[2023-03-04] MEDS: LACTATED RINGERS 1,000 ML 100 ML IV (00:47)
[2023-03-04] MEDS: AMPICILLIN 2,000 MG in SODIUM CHLORIDE 0.9% 100 ML 200 MG IV (00:47)
[2023-03-04] MEDS: AMPICILLIN 1,000 MG in SODIUM CHLORIDE 0.9% 100 ML 200 MG IV ×2 (04:54→09:43)
[2023-03-04 09:06] LABS: Alanine Aminotransferase 109 IU/L (<35)
--- NOTE | 2023-03-04 10:09 | P.HPOB_ITS ---
OB HPI Date/Time Date of admission: 03/04/23 Date Patient Seen: 03/04/23 Time Patient Seen: 10:09 History of Present Condition Chief complaint: Induction & Delivery ANNABEL Calculator Estimated Delivery Date Method Current WG Current Estimate 03/17/23 LMP (Certain) 38w 4d Other Estimates 03/07/23 Ultrasound #1 40w 0d Estimated Gestational Age (weeks): 38 : 3 Para: 2 Narrative: Patient is a 32-year-old 3 para 2 at 38 weeks gestation who presented last evening for Cervidil cervical ripening. care: good care, initiated at week # (10), number of visits (9) and pounds weight gain (32) Dating criteria OB: LMP confirmed by 1st trimester US Ultrasounds: normal 1st trimester US and normal mid trimester US Obstetrical complications: other (cholestasis) Medical complications OB: none Indications Indication for induction OB: other (cholestasis, h/o LGA baby with shoulder dystocia) Preadmission Labs Last OB Lab Results: Blood Type A Positive 03/03/23 20:35 Antibody Screen Negative 03/03/23 20:35 Hematocrit 34.4 % (36-46) L 03/05/23 06:30 Hemoglobin 11.9 g/dL (12.0-16.0) L 03/05/23 06:30 Hepatitis B Surface Antigen Negative s/c (NEGATIVE) 10/18/22 08 :05 Hepatitis C Antibody Negative s/c (NEGATIVE) 10/18/22 08:05 Rubella Antibody 10.9 IU/mL (>15) L 10/18/22 08:05 Varicella-Zoster IgG Antibody 1753 index (Immune >165) 10/18/22 08:05 Glucose 1 Hour 117 mg/dL (76-139) 11/24/22 08:18 Group B Streptococcus (PCR) Pos for grp b strep H 03/02/23 16:1 9 -: Chlamydia screen: negative, Gonorrhea screen: negative and Urine: negative -: PAP smear: Normal (2020) External Labs -: Urine: negative Prior (ies) Past Pregnancies Del. Date GA/Weeks Labor Lgth Wt Sex Route Outcome Anesthesia Place Delv Breastfeed Preg Comp Name Unknown 05/20/18 41 15 8 lb 11 oz Male vaginal live - full te rm epidural IH Dr Betancourt 10+ months shoulder dystocia post-dates induction meconium Dustin 10/16/20 38.3 16 7 lb 12 oz Male vaginal live - full te [facility] none Pablo Delivery Date: Last Updated by: Sunitha Betancourt MD Induction of labor d/t h/o LGA baby Delivery Date: 05/20/18 Last Updated by: Marylin Balderrama, R.N. *Patient did not experience shoulder dystocia as traumatic *Cat II FHR Intermittently - thick mec. *Baby was tongue-tied *Patient fainted PP X 2 Delivery Date: 10/16/20 Last Updated by: Sunitha Betancourt MD Induction of labor d/t h/o LGA baby Evaluation Evaluation Baseline heart rate: 145 Variability: Moderate (11-25) monitor accelerations: Present Monitor Decelerations: Absent Dilation (cm): 3 Effacement (%): 80 station: -1 Position of cervix: mid Consistency: soft [facility] Medical History (Updated 08/12/22 @ 14:57 by Destinee Candelario RN) Jaw fracture Surgical History (Updated 03/01/20 @ 12:15 by Marylin Balderrama RN) [place] teeth removed (~2005) Family History (Updated 03/01/20 @ 12:23 by Marylin Balderrama RN) Mother Pre-hypertension Father No problems noted. 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[employer], occasional substitute school counselor) current occupational exposures/hazards: No Previous occupational history: School Counselor : subbing in [employer] garcia/latter day: Buddhism special garcia needs: No travel history: recent (domestic only) seatbelt use: always helmet use: Yes water heater temp set < 120 deg: Yes working smoke detector in home: Yes fire extinguisher in home: Yes carbon monox detector in home: Yes firearms in home: Yes (Counseled to procure a gun safe) firearms unloaded and locked: No do you feel safe at home: Yes Smoking Status: Never smoker second hand exposure: No alcohol intake: former (1-2/week when not ) substance use type: does not use during the past year weight has: remained stable well-balanced diet: daily or most days daily servings fruits/ve or more times/day caffeine: Yes (aware of 200mg limit) Type(s) of exercise: aerobic Meds Home Medications and Allergies Home Medications Medication Instructions Recorded Confirmed Type prenat.vits,meme,for-gpsr-ubqtv 1 tab PO DAILY 03/01/20 02/11/23 History Allergies Allergy/AdvReac Type Severity Reaction Status Date / Time No Known Drug Allergies Allergy Verified 03/02/23 15:24 OB Exam Narrative Exam Narrative: Generally: Patient is sitting up in bed, no acute distress Lungs: Clear to auscultation bilaterally Cardiovascular: Regular rate and rhythm Fundal height: 40 cm Estimated weight: 8 lb Extremities: No edema Objective Labs 03/05/23 06:30 Labs: Laboratory Results - last 24 hr 03/03/23 03/03/23 03/04/23 20:35 20:35 08:35 WBC 7.8 RBC 3.93 L Hgb 12.3 Hct 36.1 MCV 91.8 MCH 31.2 MCHC 34.0 RDW 14.2 Plt Count 162 Neut % (Auto) 76.6 H Lymph % (Auto) 15.4 L Branch % (Auto) 7.2 Eos % (Auto) 0.5 L Baso % (Auto) 0.3 Neut # (Auto) 6000 Lymph # (Auto) 1200 Branch # (Auto) 600 Eos # (Auto) 0 Baso # (Auto) 0 ALT 109 H Blood Type A Positive Antibody Screen Negative Assessment and Plan Assessment and Plan Assessment and Plan narrative: Assessment: 32-year-old 3 para 2 at 38 weeks gestation for induction of labor due to cholestasis History of LGA baby with shoulder dystocia Plan: Pitocin per protocol Artificial rupture of membranes with copious clear amniotic fluid Epidural as necessary Expected management to spontaneous vaginal delivery Time Spent with Patient Total time spent with greater than 50% in coordination of care (as documented) at patient's floor/unit and/or counseling patient:: 15-24 minutes
[2023-03-04] MEDS: OXYTOCIN PREMIX 30 UNIT/500 ML PLAST..BAG IV (11:47)
--- NOTE | 2023-03-04 13:48 | PM.ANES.PR ---
Operative Date/Time/Diagnoses Date of procedure: 03/04/23 Pre-op diagnosis: labor pain
--- NOTE | 2023-03-04 13:48 | PM.AN.REGBLK ---
Regional Block Pre-procedure Procedure: Continuous Lumbar Epidural for L&D PMH/ROS narrative: Labor pain PSH/Anesthesia history narrative: WNL ASA Class: II Labs: Hct 36.1 % (36-46) 03/03/23 20:35 Plt Count 162 X10^3/uL (150-400) 03/03/23 20:35 Medications: Current Medications Generic Name Dose Route Start Last Admin Trade Name Freq PRN Reason Stop Dose Admin Calcium Carbonate 1,000 mg 03/03/23 20:05 Calcium Carbonate 500 Mg Tab PO Q4HR PRN Dyspepsia Carboprost Tromethamine 250 mcg 03/03/23 20:05 Carboprost 250 Mcg/Ml Ampul IM Q90M PRN Bleeding Diphenhydramine HCl 25 mg 03/04/23 13:46 Diphenhydramine 50 Mg/Ml Vial IV Q10M PRN Pruritis Fentanyl 50 mcg 03/03/23 20:05 Fentanyl 100 Mcg/2 Ml Inj IV Q1H PRN Pain, Moderate (4-6) Oxytocin/Lactated Ringer's 30 unit in 500 mls @ 2 mls/hr 03/03/23 20:15 03/04/23 11:47 Oxytocin Premix IV 2 milliunit/min TITRATE KIANA 2 mls/hr Administration Protocol 2 MILLIUNIT/MIN Lactated Ringer's 1,000 mls @ 100 mls/hr 03/03/23 20:15 03/04/23 00:47 Lactated Ringers IV 100 mls/hr CONT KIANA Administration Oxytocin/Lactated Ringer's 30 unit in 500 mls @ 200 mls/hr 03/03/23 20:05 Oxytocin Premix IV CONT PRN Bleeding Protocol Tranexamic Acid 1,000 mg/ 100 mls @ 200 mls/hr 03/03/23 20:05 Sodium Chloride IV NOW PRN Bleeding Ampicillin Sodium 1,000 mg/ 100 mls @ 200 mls/hr 03/04/23 03:00 03/04/23 09:43 Sodium Chloride IV 200 mls/hr Q4H KIANA Administration FENT 2MCG/ML BUPIV 0.125% EPI 200 mcg in 100 mls @ 12 mls/hr 03/04/23 14:00 Fentanyl/Bupiv/Ns 2mcg/Ml - 0.125% EPIDURAL CONT KIANA Lidocaine HCl 20 ml 03/03/23 20:05 Lidocaine 1% 20 Ml INJ INTRA-OP PRN Post Delivery Methylergonovine Maleate 0.2 mg 03/03/23 20:05 Methylergonovine 0.2 Mg/Ml Vial IM NOW PRN Bleeding Methylergonovine Maleate 0.2 mg 03/03/23 20:05 Methylergonovine 0.2 Mg Tablet PO Q6HR PRN Heavy Bleeding Misoprostol 400 mcg 03/03/23 20:05 Misoprostol 200 Mcg Tablet SL NOW PRN Bleeding Misoprostol 800 mcg 03/03/23 20:05 Misoprostol 200 Mcg Tablet NC NOW PRN Bleeding Nalbuphine HCl 2.5 mg 03/04/23 13:46 Nalbuphine 20 Mg/Ml Ampul IV Q10M PRN Pruritis Naloxone HCl 0.2 mg 03/03/23 20:05 Naloxone 0.4 Mg/Ml Vial IV Q2MIN PRN Opiate Reversal Ondansetron HCl 4 mg 03/03/23 20:05 Ondansetron 4 Mg/2 Ml Inj IV Q4HR PRN Nausea And Vomiting Oxytocin 10 unit 03/03/23 20:05 Oxytocin 10 Unit/Ml Vial IM NOW PRN Bleeding Allergies: Allergies Allergy/AdvReac Type Severity Reaction Status Date / Time No Known Drug Allergies Allergy Verified 03/02/23 15:24 Procedure Insertion date: 03/04/23 Insertion time: 13:30 Prep/Local: betadine x3 (Chloroprep) and 1% lidocaine Interspace: L4-5 Patient position: sitting Needle: 18 gauge Hustead Loss of resistance with: saline MARIE at (cm): 7 Catheter placed at SKIN (cm): 12 Catheter in SPACE (cm): 5 Initial Medications TEST DOSE time: 13:35 BOLUS DOSE time: 13:38 BOLUS DOSE (mL): 10 BOLUS DOSE med: other (Fentanyl 100mcg) Infusion INFUSION: 0.125% bupivacaine and with fentanyl 2 mcg/mL Initial rate (mL/hr): 12 Post-procedure Anesthesia time START: 13:15
--- NOTE | 2023-03-04 17:39 | P.PCNOB_ITS ---
Events: Labor Induction and Other (cholestasis) Labor & Delivery Delivery date: 03/04/23 Intrapartal Events: Deceleration (late) Cervical ripening method: per Cervidil protocol Induction method: per pitocin protocol Delivery augmentation: rupture of membranes Delivery monitor: external FHT and external uterine Route of delivery: Episiotomy description: None L&D Laceration Description: Perineal - 1st Degree Delivery repair: chromic Quantitative Blood Loss: 100 Anesthesia Type: Epidural Complications: Shoulder dystocia Narrative: Patient complete and pushed for 3 minutes. At 3:19 p.m., a live female delivered spontaneously in the KRYSTIN presentation with a compound right arm, over an intact perineum. There was a mild shoulder dystocia which was relieved with Jaelyn maneuver. The remainder of the body then delivered and infant was placed on mom's abdomen. After the cord stopped pulsing, the cord was double cl amped and cut. Cord bloods were obtained. The placenta delivered intact with a three-vessel cord at 3:34 p.m.. Fundus was massaged to firm. First-degree perineal laceration was repaired in the usual fashion. Hemostasis was achieved. Epidural analgesia. . Apgars 9 at 1 minute and 9 at 5 minutes. weight: 8 lb 14 oz. mom and infant stable to recovery. [place] Baby 1: gender: Female Presentation: vertex Position: Left Occiput Anterior Placenta delivery description: Spontaneous Cord Vessel Description: 3 Vessels and Clamped/Cut (after cord stopped pulsing) score (1 min): 9 score (5 min): 9 weight: 8 lb 14 oz Narrative: Mild shoulder dystocia relieved with Jaelyn maneuver Plan for aftercare: Routine care
[2023-03-04] MEDS: ACETAMINOPHEN 325 MG TABLET 650 MG PO (21:03)
[2023-03-04] MEDS: IBUPROFEN 600 MG TABLET PO (21:03)
[2023-03-05] MEDS: IBUPROFEN 600 MG TABLET PO ×2 (03:54→09:54)
[2023-03-05 06:45] LABS: Hematocrit 34.4 % (36-46); Hemoglobin 11.9 g/dL (12.0-16.0)
[2023-03-05 06:49] LABS: Alanine Aminotransferase 80 IU/L (<35); Albumin 2.5 g/dL (3.5-5.0); Albumin Globulin Ratio 0.8 (1.0-2.8); Alkaline Phosphatase 216 U/L (38-126); Aspartate Aminotransferase 52 IU/L (14-36); Bilirubin Total 0.7 mg/dL (0.2-1.3); Bilirubin Unconjugated 0.3 mg/dL (0.0-1.1); Globulin 3.2 g/dL (1.7-4.1); HEMOLYSIS < 15 (0-50); Total Protein 5.7 g/dL (6.3-8.2)
[2023-03-05] MEDS: DOCUSATE 100 MG CAPSULE PO (09:54)
[2023-03-05] MEDS: PRENATAL VIT,CALC/IRON/FOLIC 1 TABLET 1 TAB PO (09:54)
[2023-03-05] MEDS: MEASLES,MUMPS,RUBELLA VACC/PF 0.5 ML VIAL SUBCUT (10:15)
[2023-03-05] MEDS: LANOLIN OINT 7 GM 1 APPLIC TOP (10:49)
--- NOTE | 2023-03-07 17:17 | PM.OBDS.1 ---
Discharge Providers Provider Date of admission: 03/03/23 19:48 Discharge Date: 03/05/23 Consults: 03/03/23 20:05 Consult to Anesthesiology Urgent Comment: Consulting Provider: Anesthesiologist Reason for consultation: Epidural Has provider been notified: No Discharge provider: Sunitha Betancourt MD Summary Hospital Course Date Patient Seen: 03/05/23 Time Patient Seen: 08:00 Diagnoses: Thirty-eight weeks' gestation Cholestasis of Cervidil cervical ripening Pitocin induction of labor Artificial rupture of membranes Epidural analgesia Spontaneous vaginal delivery Mild shoulder dystocia First-degree perineal laceration repair Hospital Course: Patient is a 32-year-old 3 para 3 who presented on March 03, 2023 for Cervidil cervical ripening. She was induced due to cholestasis of . On the morning of March 04, 2023 her cervix was favorable. Artificial rupture of membranes was performed. Pitocin augmentation of labor was initiated. She received an epidural for pain management. She progressed to complete dilation and had a spontaneous vaginal delivery with a mild shoulder dystocia. Her course was unremarkable. She was discharged home on day # 1, March 05, 2023. She is to follow-up at 6 weeks. Peripartum Data Delivery Method: Natural Vaginal Laceration Description: Perineal - 1st Degree Episiotomy description: None Procedures: Cervidil cervical ripening Artificial rupture of membranes Epidural analgesia Pitocin augmentation of labor Spontaneous vaginal delivery First-degree perineal laceration repair complications: none [place] 1: Gender: Female Disposition of : home Status at Discharge Cognitive/behavioral status at discharge: oriented Functional status at discharge: independent ambulation Overall status at discharge: patient is progressing back to baseline Time Spent with Patient Time attestation: Total time spent providing and/or coordinating discharge services: Time spent: Less than 30 minutes Objective Labs 03/05/23 06:30 Exam Narrative Exam Narrative: Generally: Patient is sitting up in bed, holding infant, no acute distress Fundus: Firm at U -1 Extremities: No edema Discharge Plan Discharge Plan Patient Disposition: Home Provider Discharge Comment: Call with fever, chills, or bleeding vaginally more than a pad in an hour Ibuprofen 600 mg every 6 hours as needed for cramping Continue vitamins Discharge orders & Medications Prescriptions: Continued prenat.vits,meme,oru-gdhg-gjgtb Tablet 1 tab PO DAILY Discontinued pyridoxine (vitamin B6) 100 mg tablet 50 mg PO DAILY PRN doxylamine succinate 25 mg tablet 25 mg PO BEDTIME PRN Follow up/Referrals: Sunitha Betancourt MD [Family Provider] - ( 6 week visit w/ Dr. Betancourt: , April 16 @ 2:30pm) Diet/Activity/Treatments Diet: Regular Activity: Nothing in the vagina for 6 weeks Skin/Wound/Dressing Care Report to your healthcare provider any signs of infection, such as:: chills, fever, increased pain and unusual drainage Visit Report/Discharge Packet Instructions: DI for Labor and Delivery, Vaginal Stand Alone Forms: Discharge: Care, Patient Portal/API, Stroke Signs & Symptoms Discharges patient from system. Discharge Date/Time: 03/05/23 13:01
--- NOTE | 2023-03-10 16:29 | PM.EVENT ---
Event Note Event Note (Rapid Response, Code, or fall): Anesthesia stop time: 15:19, 03/04/2023
--- NOTE | 2023-03-18 11:25 | PM.AN.REGBLK ---
Regional Block Pre-procedure Labs: Hct 34.4 % (36-46) L 03/05/23 06:30 Plt Count 162 X10^3/uL (150-400) 03/03/23 20:35 Allergies: Allergies Allergy/AdvReac Type Severity Reaction Status Date / Time No Known Drug Allergies Allergy Verified 03/02/23 15:24 Post-procedure Post-procedure Anesthesia Assessment: Yes CV function: HR/BP stable, Yes Resp function: RR/sat/airway adequate, Yes Post-op hydration adequate, Yes Pain control adequate, Yes Nausea & vomiting absent, Yes Temperature > 36 C and Yes Mental status appropriate
== END 2023-03-05 13:01 | disposition home or self-care (01) | DRG 807 ==
PROVIDERS: Admitting Provider Obstetrics & Gynecology; Family Provider Obstetrics & Gynecology; Referring Provider Obstetrics & Gynecology; Visit Provider Obstetrics & Gynecology
DX: O99.824 Streptococcus B carrier state complicating childbirth (principal); Z37.0 Single live birth; O26.62 Liver and biliary tract disorders in childbirth; O76 Abnormality in fetal heart rate and rhythm complicating labor and delivery; O70.0 First degree perineal laceration during delivery; Z3A.38 38 weeks gestation of pregnancy; O47.03 False labor before 37 completed weeks of gestation, third trimester
CPT/HCPCS: 36415; 59025; 59050; 59200; 59400; 80076; 84460; 85014; 85018; 85025; 86850; 86900; 86901; G0378; G0379; J0290; J2590

== ENCOUNTER 2024-09-27 13:04 | Emergency (ER) | payer OTHER, SELFPAY ==
[2024-09-27] VITALS (11 sets, daily range): BP systolic 109–134; BP diastolic 63–75; PULSE 86–92; RESP 17–27; TEMP 37.3–37.5; O2SAT 96–100; BMI 21.6
--- NOTE | 2024-09-27 13:31 | EKG_ITS ---
[address] [address] Test Date: 2024-09-27 Pat Name: Lexii Mascorro Department: [facility] Room: Gender: Female Multimedia Designer: WARREN : 1990 Requested By: Order Number: [id number] Reading MD: Juan Doherty MD Measurements Intervals [place] Rate: 86 P: 66 OK: 116 QRS: 76 QRSD: 86 T: 57 QT: 348 QTc: 416 Interpretive Statements Normal sinus rhythm Electronically Signed On 09-28-2024 8:42:19 PST by Juan Doherty MD
--- NOTE | 2024-09-27 13:31 | DI.RAD.S_ITS ---
PROCEDURE: XR CHEST 1V INDICATIONS: suspected sepsis TECHNIQUE: One view of the chest was acquired. COMPARISON: None. FINDINGS: Surgical changes and devices: None. Lungs and pleura: Lungs are clear. No pleural effusions or pneumothorax. Mediastinum: Mediastinal contours appear normal. Heart size is normal. Bones and chest wall: No suspicious bony lesions. Overlying soft tissues appear unremarkable. IMPRESSION: No acute cardiopulmonary pathology. Dictated by: Jevon Alfaro M.D. on 09/27/2024 at 13:47 Approved by: Jevon Alfaro M.D. on 09/27/2024 at 13:47
[2024-09-27] MEDS: SODIUM CHLORIDE 0.9% 1,000 ML 1000 ML IV (14:08)
--- NOTE | 2024-09-27 14:12 | PC.NURSE ---
Addendum entered by Mehnaz Palacio R.N. 09/27/24 14:15: Denies vomiting. Denies diarrhea. Original Note: Reports congestion; pt reports coughing up yellow mucus. Voice changes; pt states she had a sore throat while being sick--RN unable to visualize tonsil region. Pt reports family members at home are sick. Pt states she came in today because she felt dizzy; states she laid in bed hoping the dizziness went away but stated it did not. Reports fevers/low grade fevers. GCS 15. Respirations regular and unlabored.
[2024-09-27 14:18] LABS: Add Manual Diff / Slide Review NO; Basophils Absolute Auto 0 /uL (0-100); Basophils Percent Auto 0.1 % (0-2); Eosinophils Absolute Auto 0 /uL (0-450); Eosinophils Percent Auto 0.1 % (2-4); Hematocrit 42.3 % (36-46); Hemoglobin 14.4 g/dL (12.0-16.0); Lymphocytes Absolute Auto 1200 /uL (1100-4500); Lymphocytes Percent Auto 10.8 % (25-40); Mean Corpuscular Hemoglobin 32.5 PG (26-34); Mean Corpuscular Volume 95.7 fL (80-100); Monocytes Absolute Auto 700 /uL (0-900); Neutrophils Absolute Auto 9100 /uL (1500-7000); Platelet Count 157 X10^3/uL (150-400); Red Blood Cell Count 4.42 X10^6/uL (4.0-5.2); White Blood Cell Count 10.9 X10^3/uL (4.5-11.0)
[2024-09-27 14:26] LABS: INR 1.1 (0.9-1.3); Prothrombin Time 12.7 SECONDS (9.4-12.5)
[2024-09-27 14:29] LABS: PTT Partial Thromboplastin Tim 34 SECONDS (25.1-36.5)
--- NOTE | 2024-09-27 14:29 | ED.GENADULT ---
HPI - General Adult General Chief complaint: Dizziness Stated complaint: Congestin, dizzness and weakness. Is Time Seen by Provider: 09/27/24 13:34 Source: patient Mode of arrival: Wheelchair History of Present Illness HPI narrative: 34-year-old woman with fevers to 104? for 6 days associated with slight hoarseness, congestion, initially had a slightly sore throat that seems to be improved. Today she was significantly dizzy but did not actually vomit. Comes in for further evaluation. Initial triage met criteria for SIRS. Patient does not report productive cough, abdominal pain, dysuria, frequency, urgency, constipation. Nobody else at home has similar findings. She describes all of her symptoms have significantly unusual for her. Related Data Home Medications Medication Instructions Recorded Confirmed prenat.vits,meme,[id number] 1 tab PO DAILY 03/01/20 09/27/24 Allergies Allergy/AdvReac Type Severity Reaction Status Date / Time No Known Drug Allergies Allergy Verified 09/27/24 13:24 Review of Systems Review of Systems Narrative: Pertinent positive and negative findings as per HPI Patient History Medical History Jaw fracture Surgical History [place] teeth removed (~2005) Family History Mother Pre-hypertension Father No problems noted. 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[employer], occasional substitute school counselor) current occupational exposures/hazards: No 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: [employer] special garcia needs: No travel history: recent (domestic only) seatbelt use: always helmet use: Yes water heater temp set < 120 deg: Yes working smoke detector in home: Yes fire extinguisher in home: Yes carbon monox detector in home: Yes firearms in home: Yes (Counseled to procure a gun safe) firearms unloaded and locked: No do you feel safe at home: Yes Smoking Status: Never smoker second hand exposure: No alcohol intake: former (1-2/week when not ) substance use type: does not use during the past year weight has: remained stable well-balanced diet: daily or most days daily servings fruits/ve or more times/day caffeine: Yes (aware of 200mg limit) Type(s) of exercise: aerobic Smoking Status: Never smoker Exam Initial Vital Signs Initial Vital Signs: Vital Signs Temperature 99.1 F 09/27/24 13:24 Pulse Rate 92 H 09/27/24 13:24 Respiratory Rate 17 09/27/24 13:24 Blood Pressure 130/70 09/27/24 13:24 Pulse Oximetry 99 09/27/24 13:24 Oxygen Delivery Method Room Air 09/27/24 13:24 General: Healthy appearing, appears to feel unwell but she has not toxic appearing. Slightly hoarse but able to speak in complete sentences HEENT: Moist mucous membranes, normal sclera with reactive pupils, posterior pharynx is not significantly erythematous Neck: Mild anterior cervical adenopathy Respiratory: Lungs are clear to auscultation, no wheezing no rales no rhonchi. Full and symmetrical air movement Cardiac: Tachycardic but otherwise Regular rate and rhythm no murmurs no bruits Abdomen: Soft, nontender, good bowel tones, no flank pain Skin: Warm and dry, no rashes Neurologic: Grossly neurologically intact with no obvious asymmetries or abnormalities Extremities: No trauma, well perfused Psych: Cooperative, appropriate insight and affect Course Orders Ordered: ED Orders 09/27/24 13:31 XR chest 1V Stat EKG-12 Lead Stat RT Consult Eval and Treat NOW 09/27/24 14:00 Complete Blood Count AUTO DIFF Stat Comprehensive Metabolic Panel Stat Covid-19 + FLU A/B + RSV - PCR Stat Lactate (Lactic Acid) Stat Lipase Stat PTT Partial Thromboplastin Dean Stat Procalcitonin Stat Prothrombin Time INR Stat 09/27/24 14:48 Blood Culture Stat Ondansetron HCl (Ondansetron 4 Mg/2 Ml Inj) 4 mg IV NOW PRN PRN Reason: Nausea And Vomiting Ondansetron HCl (Ondansetron 4 Mg Odt) 4 mg SL NOW PRN PRN Reason: Nausea And Vomiting Discontinued Medications Sodium Chloride (Normal Saline 0.9%) 1,000 mls @ 1,000 mls/hr IV BOLUS ONE Stop: 09/27/24 14:29 Last Infusion: 09/27/24 14:56 Dose: Infused Documented By: Admin: 09/27/24 14:08 Dose: 1,000 mls/hr Documented By: MABEL Vital Signs Vital signs: Vital Signs - 8 hr 09/27/24 13:24 09/27/24 13:37 09/27/24 13:39 Temperature 99.1 F Pulse Rate 92 H 88 Respiratory Rate 17 Blood Pressure 130/70 134/75 Pulse Oximetry 99 100 Oxygen Delivery Method Room Air 09/27/24 13:39 09/27/24 14:00 09/27/24 14:06 Temperature Pulse Rate 89 91 H Respiratory Rate 18 Blood Pressure 127/64 Pulse Oximetry 100 100 Oxygen Delivery Method 09/27/24 14:06 09/27/24 14:30 09/27/24 14:30 Temperature Pulse Rate 89 89 Respiratory Rate 27 H Blood Pressure 126/68 Pulse Oximetry 100 100 Oxygen Delivery Method 09/27/24 15:00 09/27/24 15:00 Temperature Pulse Rate 86 Respiratory Rate 26 H Blood Pressure 116/64 Pulse Oximetry 99 Oxygen Delivery Method Medical Decision Making Lab Data 09/27/24 14:00 09/27/24 14:00 Labs: Lab Results 09/27/24 Range/Units 14:00 WBC 10.9 (4.5-11.0) X10^3/uL RBC 4.42 (4.0-5.2) X10^6/uL Hgb 14.4 (12.0-16.0) g/dL Hct 42.3 (36-46) % MCV 95.7 (80-100) fL MCH 32.5 (26-34) PG MCHC 34.0 (30-36) % RDW 12.0 (11.6-14.8) % Plt Count 157 (150-400) X10^3/uL Neut % (Auto) 83.0 H (50-75) % Lymph % (Auto) 10.8 L (25-40) % [place] % (Auto) 6.0 (3-14) % Eos % (Auto) 0.1 L (2-4) % Baso % (Auto) 0.1 (0-2) % Neut # (Auto) 9100 H (2018-1505) /uL Lymph # (Auto) 1200 (1887-3166) /uL [place] # (Auto) 700 (0-900) /uL Eos # (Auto) 0 (0-450) /uL Baso # (Auto) 0 (0-100) /uL PT 12.7 H (9.4-12.5) SECONDS INR 1.1 (0.9-1.3) APTT 34 (25.1-36.5) SECONDS Sodium 137 (137-145) mmol/L Potassium 4.2 (3.4-5.1) mmol/L Chloride 104 (98-107) mmol/L Carbon Dioxide 22 (22-32) mmol/L BUN 7 (7-17) mg/dL Creatinine 0.56 (0.52-1.04) mg/dL Estimated GFR > 60 (>60) mL/min BUN/Creatinine Ratio 12.5 (6-22) Glucose 109 H (70-100) mg/dL Lactate 1.4 (0.7-2.1) mmol/L Calcium 8.9 (8.4-10.2) mg/dL Total Bilirubin 0.8 (0.2-1.3) mg/dL AST 55 H (14-36) IU/L ALT 66 H (<35) IU/L Alkaline Phosphatase 64 (38-126) U/L Total Creatine Kinase Cancelled CK-MM (CK-3) Cancelled CK-BB (CK-1) Cancelled Macro CK Type I Cancelled Macro CK Type II Cancelled CK/CKMB % Calc Cancelled Total Protein 8.2 (6.3-8.2) g/dL Albumin 4.5 (3.5-5.0) g/dL Globulin 3.7 (1.7-4.1) g/dL Albumin/Globulin Ratio 1.2 (1.0-2.8) Lipase 63 (23-300) U/L Procalcitonin 0.082 (<0.5) ng/mL SARS-CoV-2 (PCR) Negative (Negative) Influenza A (RT-PCR) Flu a positive H (NEGATIVE) Influenza B (RT-PCR) Flu b negative (NEGATIVE) RSV (PCR) Negative (Negative) Point of Care Testing Test Results Negative Urine Dip Bedside Urine Glucose Negative Bedside Urine Bilirubin - Negative Bedside Urine Ketone - Negative Urine Specific [place] 1.015 Bedside Urine Occult Blood - Negative Bedside Urine pH 7.5 Bedside Urine Protein - Negative Bedside Urine Urobilinogen - Negative Bedside Urine Nitrite - Negative Bedside Urine Leukocytes - Negative Esterase Point of care testing: Point of Care Testing Test Results Negative Urine Dip Bedside Urine Glucose Negative Bedside Urine Bilirubin - Negative Bedside Urine Ketone - Negative Urine Specific [place] 1.015 Bedside Urine Occult Blood - Negative Bedside Urine pH 7.5 Bedside Urine Protein - Negative Bedside Urine Urobilinogen - Negative Bedside Urine Nitrite - Negative Bedside Urine Leukocytes - Negative Esterase MDM Narrative Medical decision making narrative: CC: Fever for 6 days, dizziness, congestion Complicating co-morbidities: None Data collected from: patient Differential considered: Influenza, other viral syndrome, secondary bacterial infection, pneumonia with a dizziness following viral syndrome possibility of cardiomyopathy is considered Exam documented above, pertinent findings include: Patient is alert and appropriate, she is worse, anterior cervical adenopathy, tachycardic remainder of exam is benign Lab Test results independently reviewed as above. Pertinent findings: CBC shows white count at 10.9 with 83% neutrophils Urine shows no suggestion of urinary tract infection Patient is not Chemistries are reassuring. AST ALT minimally elevated similar to baseline Procalcitonin is not elevated Lactic acid is not elevated Serology is positive for influenz a Imaging studies independently reviewed: Chest x-ray is unremarkable Treatments: Zofran, fluid Discussion: 34-year-old woman with 6 days of fevers up to 104. Concern for sepsis and full workup was done. No secondary bacterial infection is identified. Patient is positive for influenza a which is consistent with her symptoms and presentation. At this point she is able to eat and drink, she is not hypoxic she is able to return to the hospital. There is no indication of sepsis, congestive heart failure, pericarditis or post viral cardiomyopathy. Reassurance is given discussed anticipated course of recovery and reasons return to the emergency department she is safe for discharge Discharge Plan Departure Patient Disposition: Home Clinical Impression: Influenza A Instructions: DI for Influenza -- Adult Activity Restrictions/Additional Instructions: Thank you for coming in today With the high fevers for as long as you have them as well as your elevated heart rate, we were initially concerned that you might actually be septic. You have influenza a as a cause of your symptoms. There is no sign of any bacterial in infection and you are not currently septic. There was no evidence of heart concerns or heart failure. Most influenza symptoms consist of very high fevers an abject misery. Fortunately, time, Tylenol, ibuprofen, plenty of fluids and chicken soup and this to shall pass some If you find that you are getting worse or develop any new symptoms, please feel free to return to the emergency department for further evaluation. Prescriptions: No Action prenat.vits,meme,[id number] Tablet 1 tab PO DAILY Referrals: Miscellaneous,Doctor, MD [Primary Care Provider] - Stand Alone Forms: Patient Portal/API/Survey
[2024-09-27 14:31] LABS: Alanine Aminotransferase 66 IU/L (<35); Albumin 4.5 g/dL (3.5-5.0); Albumin Globulin Ratio 1.2 (1.0-2.8); Alkaline Phosphatase 64 U/L (38-126); BUN Creatinine Ratio 12.5 (6-22); Bilirubin Total 0.8 mg/dL (0.2-1.3); Blood Urea Nitrogen 7 mg/dL (7-17); Calcium 8.9 mg/dL (8.4-10.2); Carbon Dioxide 22 mmol/L (22-32); Chloride 104 mmol/L (98-107); Estimated Glomerular Filt Rate > 60 mL/min (>60); Globulin 3.7 g/dL (1.7-4.1); Glucose 109 mg/dL (70-100); Lipase 63 U/L (23-300); Sodium 137 mmol/L (137-145); Total Protein 8.2 g/dL (6.3-8.2)
[2024-09-27 14:33] LABS: HEMOLYSIS 89 (0-50); Lactate (Lactic Acid) 1.4 mmol/L (0.7-2.1)
[2024-09-27 14:34] LABS: Aspartate Aminotransferase 55 IU/L (14-36); Potassium 4.2 mmol/L (3.4-5.1)
[2024-09-27 14:48] LABS: Procalcitonin 0.082 ng/mL (<0.5)
[2024-09-27 15:19] LABS: Influenza A - CEPHEID Flu A POSITIVE (NEGATIVE); Influenza B - CEPHEID Flu B NEGATIVE (NEGATIVE); Respiratory Syncytial Virus Negative (Negative)
[2024-09-27 15:25] LABS: COVID-19 CEPHEID 4-PLEX PCR Negative (Negative)
== END 2024-09-27 16:36 | disposition home or self-care (01) ==
PROVIDERS: Emergency Provider Emergency Medicine; Family Provider Obstetrics & Gynecology
DX: J10.1 Influenza due to other identified influenza virus with other respiratory manifestations (principal); R42 Dizziness and giddiness; R50.9 Fever, unspecified
CPT/HCPCS: 0241U; 36415; 71045; 80053; 81003; 81025; 83605; 83690; 84145; 85025; 85610; 85730; 87040; 93005; 93010; 96360; 99284

== ENCOUNTER → 2025-04-25 15:09 | Outpatient (CLI) | payer OTHER, SELFPAY ==
[2025-04-25 18:43] LABS: Urine N gonorrhoeae NOT DETECTED
[2025-04-25 20:24] LABS: Urine Chlamydia NOT DETECTED
== END ==
PROVIDERS: Family Provider Obstetrics & Gynecology; Visit Provider Obstetrics & Gynecology
DX: Z34.81 Encounter for supervision of other normal pregnancy, first trimester (principal)
CPT/HCPCS: 87491; 87591

== ENCOUNTER → 2025-04-25 15:37 | Outpatient (CLI) | payer OTHER, SELFPAY ==
[2025-04-25 16:30] LABS: Add Manual Diff / Slide Review NO; Hematocrit 38.5 % (36-46); Hemoglobin 13.3 g/dL (12.0-16.0); Lymphocytes Absolute Auto 1700 /uL (1100-4500); Mean Corpuscular HGB Conc 34.4 % (30-36); Mean Corpuscular Hemoglobin 32.8 PG (26-34); Mean Corpuscular Volume 95.2 fL (80-100); Platelet Count 224 X10^3/uL (150-400)
[2025-04-25 17:55] LABS: Hepatitis B Surface Antigen NEGATIVE s/c (NEGATIVE)
[2025-04-25 18:07] LABS: HIV 1 & 2 Ab/Ag 4th Gen Combo NEGATIVE (NEGATIVE); Hep C Virus Ab w/Reflex Quant NEGATIVE s/c (NEGATIVE)
== END ==
PROVIDERS: Family Provider Obstetrics & Gynecology; Referring Provider Obstetrics & Gynecology; Visit Provider Obstetrics & Gynecology
DX: Z34.81 Encounter for supervision of other normal pregnancy, first trimester (principal)
CPT/HCPCS: 36415; 80055; 86787; 86803; 86850; 86900; 86901; 87086; 87389; 87491; 87591

== ENCOUNTER → 2025-06-21 14:01 | Outpatient (CLI) | payer OTHER, SELFPAY ==
[2025-06-26 14:09] LABS: Gest Age on Col Date 17.6 weeks (.); OSBR Risk 1IN 2331 (.)
== END ==
PROVIDERS: Referring Provider Obstetrics & Gynecology; Visit Provider Obstetrics & Gynecology
DX: Z36.0 Encounter for antenatal screening for chromosomal anomalies (principal)
CPT/HCPCS: 36415; 82105

== ENCOUNTER → 2025-07-18 15:27 | Outpatient (CLI) | payer OTHER, SELFPAY ==
--- NOTE | 2025-07-18 15:28 | DI.US.S_ITS ---
PROCEDURE: US OB >= 14 WEEKS FETUS INDICATIONS: 20 weeks anatomy scan... OUTSIDE/PRIOR DATING DATA: Last menstrual period (LMP): 02/18/2025 LMP-based estimated date of delivery (ANNABEL): 11/25/2025 First dating scan (date and location): 04/25/2025 Estimated date of delivery (ANNABEL) from first dating scan: 11/21/2025 The calculations are made using the clinical ANNABEL of 11/25/2025 TECHNIQUE: Real-time scanning was performed of the fetus, with image documentation and biometric measurements. Endovaginal scanning: Not performed. COMPARISON: [facility], , OB >= 14 WEEKS FETUS, 01/14/2023, 15:41. FINDINGS: General: A single living intrauterine gestation is present. Presentation: Transverse Placenta: Placental position is posterior, without previa. Amniotic fluid index: 15.2 cm, normal range is 5-24 cm. Single deepest vertical pocket is 6.0 cm. heart rate: 143 beats per minute. Maternal cervical canal: 6.1 cm long. Normal lower limit is 2.5 cm. biometrics: Biparietal diameter: 5.4 cm, 22 weeks 3 days Head circumference: 19.3 cm, 21 weeks 3 days Abdominal circumference: 17.3 cm, 22 weeks 2 days Femur length: 3.5 cm, 20 weeks 6 days Clinically estimated gestational age: 21 weeks 3 days Composite gestational age from present scan: 21 weeks 5 days Estimated weight and percentile: 442 g, 58th percentile Anatomic survey: Neuro: Ventricles are non-dilated at less than 10 mm. Cisterna magna is normal at 3-11 mm. Cerebellum is normal in size and morphology. Nuchal skin fold: Normal at less than 6 mm between 14-21 weeks gestational age. Face: Nose and lips, facial profile are normal. Spine: No evidence for spina bifida. Heart: 4-chambered heart is present, with normal ventricular outflow tracts. Diaphragm: Diaphragm is intact. Stomach: Left-sided stomach is present. Kidneys: No hydronephrosis. Normal is less than 5 mm in 2nd trimester, less than 7 mm in 3rd trimester. Cord: 3-vessel cord. Normal abdominal cord insertion. Placental cord insertion is not identified. Bladder: Normal in size. Extremities: All 4 extremities identified. IMPRESSION: 1. Single live intrauterine with appropriate interval growth. 2. Placental cord insertion is not well visualized. 3. anatomic survey is otherwise within normal limits. Approved by: Dillon Shepherd M.D. on 07/19/2025 at 15:59
== END ==
LOC: US 15:27
PROVIDERS: Referring Provider Obstetrics & Gynecology; Visit Provider Obstetrics & Gynecology
DX: Z36.0 Encounter for antenatal screening for chromosomal anomalies (principal); Z3A.21 21 weeks gestation of pregnancy
CPT/HCPCS: 76811

== ENCOUNTER → 2025-09-04 13:38 | Outpatient (CLI) | payer OTHER, SELFPAY ==
[2025-09-04 15:03] LABS: Hematocrit 33.3 % (36-46); Hemoglobin 11.7 g/dL (12.0-16.0)
[2025-09-04 16:10] LABS: GTT (PREG) 1 Hour PP 50gm Dose 116 mg/dL (76-139)
== END ==
PROVIDERS: Referring Provider Obstetrics & Gynecology; Visit Provider Obstetrics & Gynecology
DX: Z13.0 Encounter for screening for diseases of the blood and blood-forming organs and certain disorders involving the immune mechanism (principal); Z13.1 Encounter for screening for diabetes mellitus
CPT/HCPCS: 36415; 82950; 85014; 85018